=== PATIENT | female | born 1935 | race Caucasian/White ===

== ENCOUNTER → 2016-08-06 | Outpatient (CLI) | payer OTHER ==
[~2016-08-06] MED LIST: ACETAMINOPHEN325 M1 PO; AMBIEN CR 6.26.25 MG PO; AUGMENTIN 875875 M1 PO; BYSTOLIC 5 MG5 M1 PO; CARDIZEM CD240 MG PO; COLACE 100 MG100 MG PO; COZAAR100 MG PO; CYMBALTA60 MG PO; DILT-CD240 MG PO; DITROPAN XL10 M1 PO; DIVIGEL0.25 MG TD; DULCOLAX5 MG PO; DUONEB 2.5-0.5 M3 ML INH; ENOXAPARIN30 MG/0.1 SUBQ; FUROSEMIDE 20 M20 M1 PO; FUROSEMIDE 20 M20 MG PO; KEFLEX500 MG PO; KLOR-CON 1010 MEQ PO; LASIX 40 MG TAB40 M2 PO; LEVAQUIN 500 M500 M2 PO; LIORESAL 10 MG10 MG PO; LUNESTA3 MG PO; LYRICA 50 MG50 MG PO; LYRICA 75 MG CA75 MG PO; MUCINEX TA600 MG/TA1 PO; NORCO 5-325 TA1 EACH PO; NORCO 7.5-3251 EACH PO; OXYCODONE HCL20 M1 PO; OXYCONTIN10 M1 PO; OXYCONTIN20 M1 PO; PACERONE 200 M200 M1 PO; PEPCID20 MG PO; PREDNISONE 10 M10 MG PO; RESTORIL30 MG PO; RISPERDAL0.5 MG PO; TRAMADOL 50 MG50 MG PO; ULTRAM ER200 MG PO; VANCOCIN 125 M125 M1 PO; [UNRECOGNIZED DRUG - OTHER] PO
== END ==
LOC: HYPER 07:49
DX: L03.116 Cellulitis of left lower limb (principal); L03.115 Cellulitis of right lower limb; I10 Essential (primary) hypertension; J45.909 Unspecified asthma, uncomplicated; F41.9 Anxiety disorder, unspecified; F32.9 Major depressive disorder, single episode, unspecified; Z87.01 Personal history of pneumonia (recurrent); Z85.828 Personal history of other malignant neoplasm of skin; Z85.038 Personal history of other malignant neoplasm of large intestine; Z90.710 Acquired absence of both cervix and uterus; Z72.89 Other problems related to lifestyle

== ENCOUNTER → 2016-12-22 | Outpatient (CLI) | payer OTHER | LOC: HYPER | DX: L89.613 Pressure ulcer of right heel, stage 3 (principal); I10 Essential (primary) hypertension; J45.909 Unspecified asthma, uncomplicated; F32.9 Major depressive disorder, single episode, unspecified; F41.9 Anxiety disorder, unspecified; Z85.038 Personal history of other malignant neoplasm of large intestine; Z85.828 Personal history of other malignant neoplasm of skin; Z90.710 Acquired absence of both cervix and uterus; Z87.891 Personal history of nicotine dependence; Z87.01 Personal history of pneumonia (recurrent) ==

== ENCOUNTER → 2017-01-12 | Outpatient (CLI) | payer OTHER | LOC: HYPER 07:01 | DX: L89.613 Pressure ulcer of right heel, stage 3 (principal); I10 Essential (primary) hypertension; J45.909 Unspecified asthma, uncomplicated; F41.9 Anxiety disorder, unspecified; F32.9 Major depressive disorder, single episode, unspecified; Z85.038 Personal history of other malignant neoplasm of large intestine; Z87.01 Personal history of pneumonia (recurrent); Z85.828 Personal history of other malignant neoplasm of skin; Z87.891 Personal history of nicotine dependence; Z72.89 Other problems related to lifestyle; Z90.710 Acquired absence of both cervix and uterus ==

== ENCOUNTER → 2017-02-09 | Outpatient (CLI) | payer OTHER | LOC: HYPER 07:12 | DX: L89.613 Pressure ulcer of right heel, stage 3 (principal); R60.0 Localized edema; L03.115 Cellulitis of right lower limb; I10 Essential (primary) hypertension; J45.909 Unspecified asthma, uncomplicated; F41.9 Anxiety disorder, unspecified; R60.9 Edema, unspecified; F32.9 Major depressive disorder, single episode, unspecified; Z85.828 Personal history of other malignant neoplasm of skin; Z90.710 Acquired absence of both cervix and uterus; Z87.891 Personal history of nicotine dependence; Z72.89 Other problems related to lifestyle ==

== ENCOUNTER → 2017-03-09 | Outpatient (CLI) | payer OTHER | LOC: HYPER 07:02 | DX: L89.613 Pressure ulcer of right heel, stage 3 (principal); I10 Essential (primary) hypertension; Z87.01 Personal history of pneumonia (recurrent); J45.909 Unspecified asthma, uncomplicated; F41.9 Anxiety disorder, unspecified; Z85.038 Personal history of other malignant neoplasm of large intestine; Z85.828 Personal history of other malignant neoplasm of skin; F32.9 Major depressive disorder, single episode, unspecified; Z87.891 Personal history of nicotine dependence; Z72.89 Other problems related to lifestyle; Z90.710 Acquired absence of both cervix and uterus ==

== ENCOUNTER → 2017-04-06 | Outpatient (CLI) | payer OTHER | LOC: HYPER 07:09 | DX: L89.613 Pressure ulcer of right heel, stage 3 (principal); L03.115 Cellulitis of right lower limb; I10 Essential (primary) hypertension; J45.909 Unspecified asthma, uncomplicated; F41.9 Anxiety disorder, unspecified; F32.9 Major depressive disorder, single episode, unspecified; Z85.038 Personal history of other malignant neoplasm of large intestine; Z85.828 Personal history of other malignant neoplasm of skin; Z87.01 Personal history of pneumonia (recurrent); Z90.710 Acquired absence of both cervix and uterus; Z87.891 Personal history of nicotine dependence; Z72.89 Other problems related to lifestyle ==

== ENCOUNTER → 2017-07-19 | Outpatient (CLI) | payer OTHER | LOC: HYPER 06-14 14:55 | DX: L89.612 Pressure ulcer of right heel, stage 2 (principal); J45.909 Unspecified asthma, uncomplicated; I10 Essential (primary) hypertension; F32.9 Major depressive disorder, single episode, unspecified; F41.9 Anxiety disorder, unspecified; Z85.038 Personal history of other malignant neoplasm of large intestine; Z90.710 Acquired absence of both cervix and uterus; Z87.891 Personal history of nicotine dependence; Z72.89 Other problems related to lifestyle ==

== ENCOUNTER → 2017-08-10 | Outpatient (CLI) | payer OTHER | LOC: HYPER 06:49 | DX: L89.612 Pressure ulcer of right heel, stage 2 (principal); L89.629 Pressure ulcer of left heel, unspecified stage; I10 Essential (primary) hypertension; L84 Corns and callosities; J45.909 Unspecified asthma, uncomplicated; F41.9 Anxiety disorder, unspecified; F32.9 Major depressive disorder, single episode, unspecified; Z85.038 Personal history of other malignant neoplasm of large intestine; Z87.891 Personal history of nicotine dependence; Z72.89 Other problems related to lifestyle; Z90.710 Acquired absence of both cervix and uterus ==

== ENCOUNTER → 2017-12-08 | Outpatient (CLI) | payer OTHER | LOC: HYPER 06:44 | DX: L89.612 Pressure ulcer of right heel, stage 2 (principal); L89.622 Pressure ulcer of left heel, stage 2; L03.115 Cellulitis of right lower limb; L84 Corns and callosities; Z87.01 Personal history of pneumonia (recurrent); J45.909 Unspecified asthma, uncomplicated; I10 Essential (primary) hypertension; F32.9 Major depressive disorder, single episode, unspecified; Z90.710 Acquired absence of both cervix and uterus; Z87.891 Personal history of nicotine dependence ==

== ENCOUNTER → 2017-12-21 | Outpatient (CLI) | payer OTHER | LOC: HYPER 07:03 | DX: L89.612 Pressure ulcer of right heel, stage 2 (principal); I10 Essential (primary) hypertension; L84 Corns and callosities; J44.9 Chronic obstructive pulmonary disease, unspecified; F41.9 Anxiety disorder, unspecified; F32.9 Major depressive disorder, single episode, unspecified; Z85.038 Personal history of other malignant neoplasm of large intestine; Z87.01 Personal history of pneumonia (recurrent); Z90.710 Acquired absence of both cervix and uterus; Z87.891 Personal history of nicotine dependence ==

== ENCOUNTER → 2018-01-12 | Outpatient (CLI) | payer OTHER | LOC: HYPER 07:05 | DX: L89.612 Pressure ulcer of right heel, stage 2 (principal); L84 Corns and callosities; J45.909 Unspecified asthma, uncomplicated; F41.9 Anxiety disorder, unspecified; I10 Essential (primary) hypertension; F32.9 Major depressive disorder, single episode, unspecified; Z85.038 Personal history of other malignant neoplasm of large intestine; Z87.891 Personal history of nicotine dependence; Z90.710 Acquired absence of both cervix and uterus ==

== ENCOUNTER → 2018-03-01 | Outpatient (CLI) | payer OTHER | LOC: HYPER 06:56 | DX: L89.612 Pressure ulcer of right heel, stage 2 (principal); L84 Corns and callosities; J45.909 Unspecified asthma, uncomplicated; F41.9 Anxiety disorder, unspecified; F32.9 Major depressive disorder, single episode, unspecified; I10 Essential (primary) hypertension; C44.722 Squamous cell carcinoma of skin of right lower limb, including hip; Z85.038 Personal history of other malignant neoplasm of large intestine; Z90.710 Acquired absence of both cervix and uterus; Z87.891 Personal history of nicotine dependence ==

== ENCOUNTER → 2018-04-13 | Outpatient (CLI) | payer OTHER | LOC: HYPER 06:57 | DX: L89.612 Pressure ulcer of right heel, stage 2 (principal); C44.722 Squamous cell carcinoma of skin of right lower limb, including hip; I10 Essential (primary) hypertension; J45.909 Unspecified asthma, uncomplicated; L84 Corns and callosities; F32.9 Major depressive disorder, single episode, unspecified; F41.9 Anxiety disorder, unspecified; Z87.891 Personal history of nicotine dependence; Z87.01 Personal history of pneumonia (recurrent) ==

== ENCOUNTER → 2018-04-26 | Outpatient (CLI) | payer OTHER | LOC: HYPER 07:05 | DX: L89.613 Pressure ulcer of right heel, stage 3 (principal); L84 Corns and callosities; C44.722 Squamous cell carcinoma of skin of right lower limb, including hip; G90.09 Other idiopathic peripheral autonomic neuropathy; I10 Essential (primary) hypertension; J45.909 Unspecified asthma, uncomplicated; K21.9 Gastro-esophageal reflux disease without esophagitis; F32.9 Major depressive disorder, single episode, unspecified; F41.9 Anxiety disorder, unspecified; Z85.038 Personal history of other malignant neoplasm of large intestine; Z85.828 Personal history of other malignant neoplasm of skin; Z87.891 Personal history of nicotine dependence ==

== ENCOUNTER → 2018-05-18 | Outpatient (CLI) | payer OTHER | LOC: HYPER 07:03 | DX: L89.613 Pressure ulcer of right heel, stage 3 (principal); L84 Corns and callosities; C44.722 Squamous cell carcinoma of skin of right lower limb, including hip; G90.09 Other idiopathic peripheral autonomic neuropathy; I10 Essential (primary) hypertension; J45.909 Unspecified asthma, uncomplicated; K21.9 Gastro-esophageal reflux disease without esophagitis; F32.9 Major depressive disorder, single episode, unspecified; F41.9 Anxiety disorder, unspecified; Z85.828 Personal history of other malignant neoplasm of skin; Z85.030 Personal history of malignant carcinoid tumor of large intestine; Z87.891 Personal history of nicotine dependence ==

== ENCOUNTER → 2018-06-07 | Outpatient (CLI) | payer OTHER | LOC: HYPER 06:53 | DX: L89.613 Pressure ulcer of right heel, stage 3 (principal); L84 Corns and callosities; I10 Essential (primary) hypertension; C44.722 Squamous cell carcinoma of skin of right lower limb, including hip; J45.909 Unspecified asthma, uncomplicated; G90.09 Other idiopathic peripheral autonomic neuropathy; F41.9 Anxiety disorder, unspecified; F32.9 Major depressive disorder, single episode, unspecified; Z87.891 Personal history of nicotine dependence ==

== ENCOUNTER → 2018-07-05 | Outpatient (CLI) | payer OTHER | LOC: HYPER 07:02 | DX: L89.613 Pressure ulcer of right heel, stage 3 (principal); L84 Corns and callosities; C44.722 Squamous cell carcinoma of skin of right lower limb, including hip; G90.09 Other idiopathic peripheral autonomic neuropathy; I10 Essential (primary) hypertension; J45.909 Unspecified asthma, uncomplicated; K21.9 Gastro-esophageal reflux disease without esophagitis; F41.9 Anxiety disorder, unspecified; F32.9 Major depressive disorder, single episode, unspecified; Z85.038 Personal history of other malignant neoplasm of large intestine; Z87.891 Personal history of nicotine dependence ==

== ENCOUNTER → 2018-08-10 | Outpatient (CLI) | payer OTHER | LOC: HYPER 07:22 | DX: L89.613 Pressure ulcer of right heel, stage 3 (principal); L84 Corns and callosities; C44.722 Squamous cell carcinoma of skin of right lower limb, including hip; G90.09 Other idiopathic peripheral autonomic neuropathy; I10 Essential (primary) hypertension; J45.909 Unspecified asthma, uncomplicated; K21.9 Gastro-esophageal reflux disease without esophagitis; F32.9 Major depressive disorder, single episode, unspecified; F41.9 Anxiety disorder, unspecified; Z85.038 Personal history of other malignant neoplasm of large intestine; Z87.891 Personal history of nicotine dependence ==

== ENCOUNTER → 2018-08-31 | Outpatient (CLI) | payer OTHER | LOC: HYPER 07:01 | DX: L89.613 Pressure ulcer of right heel, stage 3 (principal); L84 Corns and callosities; C44.722 Squamous cell carcinoma of skin of right lower limb, including hip; G90.09 Other idiopathic peripheral autonomic neuropathy; I10 Essential (primary) hypertension; J45.909 Unspecified asthma, uncomplicated; K21.9 Gastro-esophageal reflux disease without esophagitis; F32.9 Major depressive disorder, single episode, unspecified; F41.9 Anxiety disorder, unspecified; Z85.038 Personal history of other malignant neoplasm of large intestine; Z87.891 Personal history of nicotine dependence ==

== ENCOUNTER → 2018-09-14 | Outpatient (CLI) | payer OTHER | LOC: HYPER 07:05 | DX: L89.613 Pressure ulcer of right heel, stage 3 (principal); L84 Corns and callosities; C44.722 Squamous cell carcinoma of skin of right lower limb, including hip; G90.09 Other idiopathic peripheral autonomic neuropathy; I10 Essential (primary) hypertension; J45.909 Unspecified asthma, uncomplicated; R60.0 Localized edema; F32.9 Major depressive disorder, single episode, unspecified; F41.9 Anxiety disorder, unspecified; Z85.038 Personal history of other malignant neoplasm of large intestine; Z85.828 Personal history of other malignant neoplasm of skin; Z87.891 Personal history of nicotine dependence ==

== ENCOUNTER → 2018-09-27 | Outpatient (CLI) | payer OTHER | LOC: HYPER 06:41 | DX: L89.613 Pressure ulcer of right heel, stage 3 (principal); L84 Corns and callosities; C44.722 Squamous cell carcinoma of skin of right lower limb, including hip; G90.09 Other idiopathic peripheral autonomic neuropathy; I10 Essential (primary) hypertension; J45.909 Unspecified asthma, uncomplicated; K21.9 Gastro-esophageal reflux disease without esophagitis; F32.9 Major depressive disorder, single episode, unspecified; F41.9 Anxiety disorder, unspecified; Z85.038 Personal history of other malignant neoplasm of large intestine; Z87.891 Personal history of nicotine dependence ==

== ENCOUNTER → 2018-10-11 | Outpatient (CLI) | payer OTHER | LOC: HYPER 06:51 | DX: L89.613 Pressure ulcer of right heel, stage 3 (principal); L84 Corns and callosities; C44.722 Squamous cell carcinoma of skin of right lower limb, including hip; G90.09 Other idiopathic peripheral autonomic neuropathy; I10 Essential (primary) hypertension; J45.909 Unspecified asthma, uncomplicated; K21.9 Gastro-esophageal reflux disease without esophagitis; R60.0 Localized edema; F32.9 Major depressive disorder, single episode, unspecified; F41.9 Anxiety disorder, unspecified; Z85.038 Personal history of other malignant neoplasm of large intestine; Z85.828 Personal history of other malignant neoplasm of skin; Z87.891 Personal history of nicotine dependence ==

== ENCOUNTER → 2018-10-25 | Outpatient (CLI) | payer OTHER | LOC: HYPER 07:03 | DX: L89.613 Pressure ulcer of right heel, stage 3 (principal); L84 Corns and callosities; G90.09 Other idiopathic peripheral autonomic neuropathy; R60.0 Localized edema; C44.722 Squamous cell carcinoma of skin of right lower limb, including hip; I10 Essential (primary) hypertension; J45.909 Unspecified asthma, uncomplicated; K21.9 Gastro-esophageal reflux disease without esophagitis; F41.9 Anxiety disorder, unspecified; F32.9 Major depressive disorder, single episode, unspecified; Z85.038 Personal history of other malignant neoplasm of large intestine; Z87.891 Personal history of nicotine dependence ==

== ENCOUNTER → 2018-11-23 | Outpatient (CLI) | payer OTHER | LOC: HYPER 06:46 | DX: L89.613 Pressure ulcer of right heel, stage 3 (principal); L89.151 Pressure ulcer of sacral region, stage 1; I10 Essential (primary) hypertension; C44.722 Squamous cell carcinoma of skin of right lower limb, including hip; L84 Corns and callosities; G90.09 Other idiopathic peripheral autonomic neuropathy; R60.0 Localized edema; J45.909 Unspecified asthma, uncomplicated; F32.9 Major depressive disorder, single episode, unspecified; F41.9 Anxiety disorder, unspecified; Z87.891 Personal history of nicotine dependence; Z85.038 Personal history of other malignant neoplasm of large intestine ==

== ENCOUNTER 2018-12-02 12:15 | Inpatient (IN) | payer OTHER ==
[~2018-12-02] VITALS: Ht 162.6 cm; Wt 55.8 kg
--- NOTE | ~2018-12-02 | HC ---
[facility] [place] [address] CONSULTATION Name: AARON ANGUIANO Room #: 212-P ADM IN M.R.#: [id number] Admission: 12/05/18 ������������������ Attend Phys: Brittney Beard MD Discharge: ������������������ Date of : 34 Report #: [id number] THIS REPORT FOR: //name// CC: Brittney Beard DATE OF SERVICE: 12/05/2018 HISTORY OF PRESENT ILLNESS: The patient is an 82-year-old white female admitted with increased cough, shortness of breath, and was noted to have left lower lobe pneumonia, non-ST elevation [place], intermittent atrial fibrillation. She has chronic pain. She was noted to have paroxysmal atrial fibrillation, superimposed on supraventricular tachycardia. She also has acute renal insufficiency with hyponatremia. We are seeing her in rehabilitation medicine consultation. PAST MEDICAL HISTORY: Asthma, hypertension, bipolar disorder, chronic edema of the lower extremities, multilobar pneumonia with respiratory failure, intermittent atrial fibrillation, Clostridium difficile colitis, chronic pain ____ with laminectomy x 3, prior history of rotator cuff surgery, knee surgery, and multiple abdominal surgeries. MEDICATIONS: Please see the full medication listing. This includes vitamins, herbals, and supplements. ALLERGIES: ASPIRIN, CODEINE AND DULOXETINE. SOCIAL HISTORY: Lives in a house with significant other of 40 years, 12 steps in. Used a cane just when out in the community. Otherwise, did not use gait aids. REVIEW OF SYSTEMS: No complaints of chest pain, shortness of breath or abdominal discomfort. PHYSICAL EXAMINATION: GENERAL: An 82-year-old thin white female in no obvious distress. VITAL SIGNS: Last recorded temperature 98.4, pulse 87, respirations 18, and blood pressure 114/60. She is alert. HEENT: Appeared to be benign. NEUROLOGIC: Cranial nerves are grossly intact. Facies are symmetric. Answers questions appropriately. Functional range of motion of both upper extremities with strength grade 4-/5. DTRs trace to 1. Lower extremities, no focal calf swelling, functional range of motion with strength grade 4-/5. DTRs are trace to 1. She is mod assist, sit to stand. Gait 100 feet min assist with a front-wheeled walker. ASSESSMENT: An 82-year-old white female with the following problems: [address] [address] CONSULTATION Name: AARON ANGUIANO Room #: [facility] IN ..#: [id number] Admission: 12/05/18 ������������������ Attend Phys: Brittney Beard MD Discharge: ������������������ Date of : 34 Report #: [id number] 1. Medical complex with generalized debilitation. 2. Left lower lobe pneumonia. 3. Non-ST elevation myocardial infarction. 4. Intermittent atrial fibrillation. 5. Chronic pain syndrome. 6. Diastolic congestive heart failure. PLAN: The patient is being considered regarding an acute [facility] inpatient rehabilitation stay. We will be glad to follow along with you regarding her rehab therapy needs. ��������������������������������������������� ���������������������������������������� By: ��������������������������������������������� [id number] Ney Dboson MD /axel
[2018-12-02 12:17] VITALS: BP 121/53
[2018-12-02 12:54] LABS: ABSOLUTE NEUTROPHILS 9.4 thou/uL (1.4-8.2); BASOPHILS 0.2 % (0.0-2.0); EOSINOPHILS 0.7 % (0.0-3.0); HEMATOCRIT 36.4 % (37.0-47.0); HEMOGLOBIN 12.3 gm/dL (12.0-15.0); LYMPHOCYTES 7.8 % (24.0-44.0); MCH 29.8 pg (26.0-34.0); MCHC 33.7 g/dL (28.0-37.0); MCV 88.4 fL (80.0-100.0); POLYS 85.3 % (36.0-66.0); RBC 4.12 mil/uL (4.20-5.00); RDW 14.9 % (10.5-14.5); WBC 11.1 thou/uL (4.0-11.0)
[2018-12-02 13:03] LABS: CALCIUM 9.6 mg/dL (8.5-10.1); CREATININE 1.5 mg/dL (0.6-1.0); POTASSIUM 3.5 mmol/L (3.5-5.1)
[2018-12-02 13:13] LABS: ALBUMIN 3.1 g/dL (3.4-5.0); MAGNESIUM 2.3 mg/dL (1.8-2.4); TOTAL BILIRUBIN 0.6 mg/dL (<0.1-1.0); TOTAL PROTEIN 7.7 g/dL (6.4-8.2); TROPONIN-I 0.42 ng/mL (<0.06)
[2018-12-02 13:14] LABS: APTT 27.5 Seconds (24.5-32.8); PROTIME 9.8 Seconds (9.3-11.4)
[2018-12-02 13:24] LABS: URINE BILIRUBIN NEGATIVE (Negative); URINE BLOOD NEGATIVE (Negative); URINE CLARITY CLEAR; URINE COLOR YELLOW; URINE GLUCOSE-RANDOM* NEGATIVE (Negative); URINE KETONES NEGATIVE (Negative); URINE LEUKOCYTES-REFLEX NEGATIVE (Negative); URINE NITRITE-REFLEX NEGATIVE (Negative); URINE PROTEIN (DIPSTICK) NEGATIVE (Negative); URINE SPECIFIC GRAVITY <= 1.005 (1.005-1.035); URINE UROBILINOGEN 0.2 E.U./dl (0.2-1.0)
[2018-12-02 13:28] LABS: LARGE PLATELETS MANY; PLATELET COUNT 99 thou/uL (150-400)
[2018-12-02] MEDS ORDERED: KEFLEX250 MG PO (13:52)
[2018-12-02] MEDS ORDERED: OXYCONTIN20 M1 PO (13:54)
[2018-12-02 14:19] VITALS: BP 101/43
[2018-12-02 14:47] VITALS: BP 93/43
[2018-12-02 15:15] VITALS: BP 101/44
--- NOTE | 2018-12-02 19:45 | NUR ---
PT ARRIVED TO 212 FROM ED IN STABLE CONDITION AT APPROX 15:15. S.O. DARIN AT BEDSIDE. ADMISSION ASSESSMENT COMPLETED. A&O TO PERSON, PLACE, SITUATION - NOT TIME. 1.[address], NO OXYGEN USE AT HOME. LOW BP NOTED IN ED, IMPROVING. DENIES SOA OR CHEST PAIN. LUNG SOUNDS DIM/COARSE THROUGHOUT. SKIN HX COCCYX WOUND REDNESS, BILATERAL HEEL WOUNDS, BILATERAL ARMS/LEGS SCARS AND BRUISING. HX SQUAMOUS GRAFTS. INTACT, NO OPEN AREAS NOTED. FALL RISK NOTED, YELLOW SOCKS IN PLACE. X1 ASSIST. PT IN STABLE CONDITION. END OF SHIFT.
[2018-12-02 20:35] VITALS: BP 119/56
[2018-12-03 02:19] VITALS: BP 113/55
[2018-12-03 04:48] VITALS: BP 136/68
[2018-12-03 05:04] LABS: HEMATOCRIT 34.3 % (37.0-47.0); HEMOGLOBIN 11.5 gm/dL (12.0-15.0); MCH 30.3 pg (26.0-34.0); MCHC 33.5 g/dL (28.0-37.0); MCV 90.3 fL (80.0-100.0); RBC 3.79 mil/uL (4.20-5.00); RDW 15.1 % (10.5-14.5); WBC 7.2 thou/uL (4.0-11.0)
[2018-12-03 05:13] LABS: CALCIUM 8.6 mg/dL (8.5-10.1); CREATININE 0.8 mg/dL (0.6-1.0)
[2018-12-03 05:21] LABS: POTASSIUM 2.6 mmol/L (3.5-5.1)
--- NOTE | 2018-12-03 05:21 | NUR ---
ASSESSMENT DOCUMENTED.PT RESTING IN NO ACUTE DISTRESS.VSS.FREQUENT URINATION.UP TO BSC WITH ONE PERSON ASSIST.A/OX4.USES CALL LIGHT APPROPRIATELLY.MEDS RESUMED PER DR MORENO ORDERS.PT DENIES PAIN.IVF INFUSING.O2 AT 2LITERS PER NC.DR MORENO TO SEE PT FOR MORE ORDERS THIS AM.
[2018-12-03 07:30] VITALS: BP 140/53
--- NOTE | 2018-12-03 08:22 | EKG ---
[address] [place] [address] ELECTROCARDIOGRAM REPORT Name: AARON ANGUIANO Room #: 212-[facility]#: [id number] ������������������ Admission: 12/02/18 ������������������ Attend Phys: Brittney Beard MD Discharge: ������������������ Date of : 34 Report #: [id number] ����������������������������������������������������������������� [id number] THIS REPORT FOR: //name// [facility] ED Test Date: 2018-12-02 Test Time: 13:08:25 Pat Name: AARON ANGUIANO Department: Room: [facility] Gender: F Weight Trainer: : 1935 Requested By: Blaine Garrison Order Number: [id number] MD: Karlo Estrada Measurements Intervals [place] Rate: 94 P: 73 IA: 126 QRS: 59 QRSD: 124 T: 26 QT: 353 QTc: 442 Interpretive Statements Sinus rhythm Right bundle branch block Compared to ECG 09/16/2016 13:58:02 No significant changes Electronically Signed On 12-03-2018 8:21:59 CDT by Karlo Estrada [email or web address] ��������������������������������������������� <ELECTRONICALLY SIGNED> ���������������������������������������� By: Karlo Estrada MD ��������������������������������������������� 12/03/18 0821 1308 1308 Karlo Estrada MD /BELGICA
--- NOTE | 2018-12-03 09:26 | 2DMMODE ---
[facility] [place] [address] 2 D/M-MODE ECHOCARDIOGRAM Name: AARON ANGUIANO Room #: 212-P ADM IN M.R.#: [id number] ������������� Admission: 12/02/18 ������������� Attend Phys: Brittney Beard MD Discharge: ��� ������������� ��� Date of : 34 Date of Service: 12/03/18 0926 �� Report #: [id number] �������� ��������������������������������������������[id number] THIS REPORT FOR: //name// APPROVED REPORT Study performed: 12/03/2018 07:59:06 EXAM: Comprehensive 2D, Doppler, and color-flow Echocardiogram Patient Location: Bedside Room #: 212 Status: on-call BSA: 1.54 HR: 89 bpm BP: 136/68 mmHg Rhythm: NSR Other Information Study Quality: Adequate Indications Short of breath. Hx: HTN, Afib. 2D Dimensions RVDd: 37.00 mm IVSd: 8.55 (7-11mm) LVOT Diam: 20.06 (18-24mm) LVDd: 38.98 mm PWd: 9.19 (7-11mm) Ascending Ao: 24.84 (22-36mm) LVDs: 25.59 (25-40mm) Aortic Root: 27.25 mm Volumes Left Atrial Volume (Systole) Single Plane 4CH: 37.12 mL Single Plane 2CH: 29.20 mL LA ESV Index: 24.00 mL/m2 Aortic Valve AoV Peak Abdon.: 1.43 m/s AO Peak Gr.: 8.22 mmHg LVOT Max P.87 mmHg LVOT Max V: 1.21 m/s AMAURI Vmax: 2.67 cm2 Mitral Valve E/A Ratio: 1.2 MV Decel. Time: 120.61 ms MV E Max Abdon.: 1.18 m/s [facility] [address] [place] [address] 2 D/M-MODE ECHOCARDIOGRAM Name: AARON ANGUIANO BERNAL Room #: [address] [place] [address] IN ..#: [id number] ������������� Admission: 12/02/18 ������������� Attend Phys: Brittney Beard MD Discharge: ��� ������������� ��� Date of : 34 Date of Service: 12/03/18 0926 �� Report #: [id number] �������� ��������������������������������������������[id number] MV A Abdon.: 1.00 m/s MV PHT: 34.98 ms IVRT: 48.44 ms Pulmonary Valve PV Peak Abdon.: 0.92 m/s PV Peak Gr.: 3.40 mmHg Pulmonary Vein P Vein S: 0.65 m/s P Vein D: 0.43 m/s P Vein S/D Ratio: 1.51 Tricuspid Valve TR Peak Abdon.: 2.92 m/s RAP Estimate: 10.00 mmHg TR Peak Gr.: 34.03 mmHg PA Pressure: 44.00 mmHg Left Ventricle The left ventricle is normal size. There is normal LV segmental wall motion. There is normal left ventricular wall thickness. Left ventricular systolic function is normal. LVEF is 55-60%. Moderate diastolic dysfunction is present (pseudonormal filling). Right Ventricle The right ventricle is normal size. The right ventricular systolic function is normal. Atria The left atrium size is normal. The right atrium size is normal. Aortic Valve Aortic valve is trileaflet, mildly thickened. No aortic regurgitation is present. There is no aortic valvular stenosis. Mitral Valve Mitral valve leaflets are mildly thickened. Mild mitral regurgitation. Tricuspid Valve The tricuspid valve is normal in structure. Mild tricuspid regurgitation. Estimated PAP is 40-45mmHg. Pulmonic Valve The pulmonary valve is normal in structure. Trace pulmonic regurgitation. [facility] [address] [place] [address] 2 D/M-MODE ECHOCARDIOGRAM Name: AARON ANGUIANO Room #: [facility] IN ..#: [id number] ������������� Admission: 12/02/18 ������������� Attend Phys: Brittney Beard MD Discharge: ��� ������������� ��� Date of : 34 Date of Service: 12/03/18 0926 �� Report #: [id number] �������� ��������������������������������������������[id number] Great Vessels The aortic root is normal in size. The ascending aorta is normal in size. IVC is dilated and collapses >50% with inspiration. Pericardium There is no pericardial effusion. <Conclusion> The left ventricle is normal size. There is normal left ventricular wall thickness. Left ventricular systolic function is normal. Moderate diastolic dysfunction is present (pseudonormal filling). The right ventricle is normal size. The left atrium size is normal. Aortic valve is trileaflet, mildly thickened. Mitral valve leaflets are mildly thickened. Mild mitral regurgitation. Mild tricuspid regurgitation. Estimated PAP is 40-45mmHg. ��������������������������������������������� <ELECTRONICALLY SIGNED> ���������������������������������������� By: Karlo Estrada MD ��������������������������������������������� 12/03/18925 5 5 Karlo Estrada MD /INF
[2018-12-03 11:30] VITALS: BP 125/49
[2018-12-03 15:55] VITALS: BP 126/53
--- NOTE | 2018-12-03 16:41 | NUR ---
PT A&OX4. TRANSFERS WITH ASSIST X1 TO BSC. IV INTACT IN L FA INFUSING NS @ 125/HR. O2 @1.5L PER NC. S/O AT THE BEDSIDE. WILL CONT POC.
[2018-12-04] VITALS (7 sets, daily range): BP systolic 103–153; BP diastolic 4–73
--- NOTE | 2018-12-04 01:11 | NUR ---
ASSUMED PT CARE FROM 0 TO MIDNOC.PT WAS RESTING IN NO ACUTE DISTRESS.A/OX4.VSS.C/O BLADDER SPASMS,HOME MED RESUMED PER ORDERS.C/O CHRONIC PAIN TO BACK AND SOFIA LES,PAIN MEDS GIVEN PER SEP,PT VOICED SOME RELIEF.UP WITH ASSIST OF 1 TO BSC,TOLERATED.PT/OT ON BOARD PER PT/FAMILY REQUEST.REPORT GIVEN TO RN TO CONTINUE WITH CARE.
[2018-12-04 03:21] LABS: HEMATOCRIT 29.8 % (37.0-47.0); MCH 30.6 pg (26.0-34.0); MCHC 33.4 g/dL (28.0-37.0); MCV 91.5 fL (80.0-100.0); PLATELET COUNT 85 thou/uL (150-400); RBC 3.25 mil/uL (4.20-5.00); RDW 15.1 % (10.5-14.5); WBC 7.5 thou/uL (4.0-11.0)
[2018-12-04 03:29] LABS: CALCIUM 8.4 mg/dL (8.5-10.1); CREATININE 0.7 mg/dL (0.6-1.0); MAGNESIUM 1.5 mg/dL (1.8-2.4); POTASSIUM 3.8 mmol/L (3.5-5.1)
--- NOTE | 2018-12-04 04:27 | NUR ---
CLIENT REMAINS IN THE [address] [place] [address] IN PATIENT NURSING UNIT FOR WEAKNESS, FEVER AND FATIGUE. CARE ASSUMED 12/03/18 @ 2300. CLIENT IS A/O X3 ABLE TO HOLD CONVERSATION AND RESPOND TO QUESTIONS BEING ASKED. UP WITH ASSIST X1, CURRENTLY ON CCT. HAS EDEMA TO BLE 1-2+. RECEIVING 1.5L/NC OF 02. HEART HEALTHY DIET, LAST BM 12/01/18. CLIENT HAS BRUISING THROUGOUT HER SKIN AND SLIGHT REDDEND HEELS TO BILATERAL FEET. LEFT FA PIV WITH NS @ 50ML. CLIENT HAS BEEN AFIBRILE DURING THE NIGHT AND HAD A PREVIOUS TROPONIN LEVEL OF 0.42. PLEASE SEE Mechanology FOR ADDITIONAL QUESTIONS OR CONCERNS.
[2018-12-04 04:48] LABS: ABSOLUTE NEUTROPHILS 5.3 thou/uL (1.4-8.2); LARGE PLATELETS OCCASIONAL; PLATELET ESTIMATE DECREASED
--- NOTE | 2018-12-04 08:37 | HC ---
[facility] [place] [address] CONSULTATION Name: AARON ANGUIANO Room #: 212-P [facility].[place]orraine#: [id number] Admission: 12/02/18 ������������������ Attend Phys: Brittney Beard MD Discharge: ������������������ Date of : 34 Report #: [id number] THIS REPORT FOR: //name// CC: Brittney Beard DATE OF SERVICE: 12/02/2018 INDICATION: Troponin elevation. HISTORY OF PRESENT ILLNESS: This is an 82-year-old female with a history of hypertension, bipolar disorder, asthma, paroxysmal atrial fibrillation, edema, cellulitis, who presents with weakness and fever. According to the , she has been feeling lethargic and weak for the past week or so. This morning, she was found to have a temperature of 101, did not feel well. She denies any chest pains or shortness of breath. There is no history of nausea, vomiting or diarrhea. She does report cough with minimal phlegm production. She is admitted for possible pneumonia and the troponin is elevated at 0.42. PAST MEDICAL HISTORY: Paroxysmal atrial fibrillation, although not recently documented. Followed by Dr. Johns. History of asthma, hypertension, bipolar disorder, history of edema with C. diff in the past and cellulitis. MEDICATIONS AT HOME: Include Risperdal, Dulcolax, OxyContin, Lasix 40 mg twice a day, Cardizem-CD 180 mg daily, potassium. ALLERGIES: INCLUDE ASPIRIN, NEOSPORIN, CODEINE, LATEX. Please see the MAR for full details. SOCIAL HISTORY: Negative for tobacco use. FAMILY HISTORY: Negative for premature CAD. REVIEW OF SYSTEMS: A full 10-point review of systems is performed. Only the pertinent positives and negatives are described in the HPI. PHYSICAL EXAMINATION: VITAL SIGNS: Blood pressure is 100/60, heart rate is 87 beats per minute. GENERAL APPEARANCE: An elderly appearing female in no acute distress. HEENT: Normocephalic, atraumatic. Oral mucosa moist. NECK: Supple. LUNGS: Diminished breath sounds at the right base. CARDIAC: Regular rate and rhythm, S1, S2 positive. ABDOMEN: Soft, nontender. EXTREMITIES: Trace edema, no cyanosis. ECG reveals sinus rhythm, right bundle-branch block. [facility] [address] [place] [address] CONSULTATION Name: AARON ANGIUANO Room #: [address] [place] [address] M.R.#: [id number] Admission: 12/02/18 ������������������ Attend Phys: Brittney Beard MD Discharge: ������������������ Date of : 34 Report #: [id number] LABORATORY VALUES: Troponin peak is 0.42, White count is 11.1, hemoglobin is 12.3, platelet count is 99,000. Creatinine is 1.5, BUN is 72. Sodium is 142. ASSESSMENT AND PLAN: 1. Weakness/lethargy, rule out pneumonia. Continue with antibiotics at this time. Would also recommend gentle hydration, the BUN and creatinine ratio is high. 2. Minimal troponin elevation, the significance is unclear as she has no complaints of angina and ECG does not show any acute ST segment changes. Could be related to oxygen mismatch. We will need an echocardiogram and an ischemic evaluation once her clinical course stabilizes. 3. Hypertension, low blood pressure at this time. Would hold on diuretic therapy. 4. History of paroxysmal atrial fibrillation, remains in sinus rhythm. 5. Edema, resolved. Hold Lasix as above. ��������������������������������������������� <ELECTRONICALLY SIGNED> ���������������������������������������� By: Karlo Estrada MD ��������������������������������������������� 12/04/18 0837 [id number] Karlo Estrada MD /nt
--- NOTE | 2018-12-04 08:45 | H ---
[facility] [place] [address] HISTORY AND PHYSICAL Name: AARON ANGUIANO Room #: 212-P [facility].Lorraine#: [id number] Admission: 12/02/18 ������������������ Attend Phys: Brittney Beard MD Discharge: ������������������ Date of : 34 Report #: [id number] THIS REPORT FOR: //name// CC: Brittney Beard DATE OF SERVICE: 12/02/2018 HISTORY OF PRESENT ILLNESS: The patient is an 82-year-old female who was brought to the Emergency Room with increasing coughing, shortness of breath and high grade fever. The patient indicated that she has started this about 1 day before. The patient does not have any runny nose or sore throat. The patient was not having any chest pain. The patient was not having any nausea or vomiting. The patient was found to have pneumonia and she was treated for that. PAST MEDICAL HISTORY: Significant for asthma, hypertension, bipolar disorder, interstitial cystitis, chronic edema of the lower extremities, multilobar pneumonia with respiratory failure, intermittent atrial fibrillation and C. difficile colitis. The patient had chronic pain syndrome with laminectomy x3, previous history of knee surgery, rotator cuff surgery and multiple abdominal surgeries. MEDICATIONS: Reviewed and reconciled. ALLERGIES: ASPIRIN, CODEINE AND DULOXETINE. SOCIAL HISTORY: The patient denies any recent smoking, alcohol use or drug use. FAMILY HISTORY: Noncontributory. REVIEW OF SYSTEMS: Negative besides what was mentioned above. PHYSICAL EXAMINATION: VITAL SIGNS: The patient is in bed. She is comfortable, eating her breakfast. When she arrived to the hospital, her temperature was 102.8, pulse 115, respiration 15, blood pressure 121/53. Last temperature was 97.5. The patient's oxygen saturation was 86% on arrival, and now it is 95%. HEAD AND NECK: Unremarkable. NECK: Supple. LUNGS: Clear to auscultation with decreased breath sounds. CARDIAC: S1, S2, without any murmur or gallop. ABDOMEN: Benign. Bowel sounds were positive. EXTREMITIES: +2 edema bilaterally. LABORATORY DATA: The patient's lab showed sodium of 142, potassium 3.5, chloride 99, bicarbonate 36, anion gap 7, BUN 72, creatinine 1.5, and glucose 106, AST 60, total bilirubin 0.6, magnesium 2.3, alkaline phosphatase 81, ALT [address] [address] HISTORY AND PHYSICAL Name: AARON ANGUIANO Room #: [address] [place] [address] M..#: [id number] Admission: 12/02/18 ������������������ Attend Phys: Brittney Beard MD Discharge: ������������������ Date of : 34 Report #: [id number] 32, and albumin 3.1. The patient's troponin was 0.42. Lactic acid was 1. BNP was 368. INR was 1 and PTT 27.5. Urinalysis was normal. CBC showed a white count of 11.1, hemoglobin 12.3, hematocrit 36.4, platelet count 99, neutrophils are 85%. The patient's chest x-ray showed left lower lobe atelectasis or infiltrate, chronic fibrosis. Influenza A and B was negative. Repeated troponin was 0.39. Repeated CBC showed a white count of 7.2, hemoglobin 11.5, hematocrit 34.3, and platelet count 81. The patient's basic metabolic panel showed sodium of 147, potassium 2.6, chloride 108, bicarbonate 34, BUN dropped to 30, and creatinine 0.8. Repeated troponin is 0.31. Blood culture are still pending. A 12-lead EKG showed sinus rhythm with right bundle branch block. Repeat chest x-ray showed pulmonary vascular congestion with interstitial and airspace opacities, suspicious for pulmonary edema, more focal bilateral lower lobe opacities, may represent pulmonary edema or atelectasis, superimposed pneumonia would be difficult to exclude. ASSESSMENT AND PLAN: 1. Left lower lobe pneumonia. 2. Non-ST elevation myocardial infarction. 3. Intermittent atrial fibrillation. 4. Chronic pain syndrome. 5. Diastolic congestive heart failure. The patient was admitted to the hospital with the above-mentioned diagnoses. The patient was started on IV antibiotics, Zithromax and Rocephin, and I will continue with the current medications. The patient has responded very well to the antibiotics. I will resume the patient's diuretics. I will cut down on the amount of fluid she is receiving. The patient was consulted by Cardiology. I will be very reluctant to use Lovenox or heparin for DVT prophylaxis because of the thrombocytopenia. We will continue to monitor the patient's labs very closely. ��������������������������������������������� <ELECTRONICALLY SIGNED> ���������������������������������������� By: Brittney Beard MD ��������������������������������������������� 12/04/18 0845 0915 1018 Brittney Beard MD /nt
--- NOTE | 2018-12-04 17:48 | NUR ---
PT A&OX4, AMBULATED WITH PT TODAY. IV INTACT IN L FA INFUSING NS @50/HR. S/O AT BEDSIDE. CALL LIGHT WITH IN REACH, BED ALARM ON. WILL CONT POC.
[2018-12-05 03:58] VITALS: BP 118/54
--- NOTE | 2018-12-05 05:13 | NUR ---
ASSESSMENT DOCUMENTED.PT BEEN RESTING IN NO ACUTE DISTRESS.A/OX4.VSS.CONT ON ANTIBIOTIC THERAPY FOR PNA,TOLERATING.CHRONIC PAIN CONTROLLED WITH SCHEDULED PAIN MEDS.PT TO HAVE STRESS TEST TODAY.PT KEPT NPO SINCE MIDNOC.WILL CONT TO MONITOR PER POC.
[2018-12-05 07:40] VITALS: BP 104/56
[2018-12-05 11:50] VITALS: BP 114/60
[2018-12-05 15:30] VITALS: BP 103/72
[2018-12-05 15:40] VITALS: BP 131/56
--- NOTE | 2018-12-05 18:17 | NUR ---
PT A&OX4, IV INTACT IN L FA INFUSING FLUIDS W/O COMPS. AMBULATES WITH ASSIST X1. PT RETURNED FROMSTRESS TEST. O2 @ 1.5L PER NC. WILL CONT POC.
[2018-12-05 20:11] VITALS: BP 120/61
--- NOTE | 2018-12-06 04:31 | NUR ---
RECEIVED PT'S CARE AT 1900; PT. ON BED; AOX4; DURING ASSESSMENT PT. C/O LOWER BACK PAIN; 12/18; SCHEDULED PAIN MEDICATION GIVEN; PAIN RE-ASSESSMENT; PT. SLEEPING; EDUCATED ABOUT FALL PREVENTION; ST. UNDERSTANDING; CALLED APROPIATELY THROUGH THE NIGHT; ABLE TO REST DURING THE NIGHT; EDUCATED ABOUT THE IMPORTANCE OF TURNING FROM SIDE TO SIDE; ST. UNDERSTANDING; TURNED AT MIDNIGHT TO THE LEFT SIDE; ASSESSMENT CHARGED; FOLLOWING POC; WILL KEEP MONITORING; WILL PASS ON REPORT.
[2018-12-06 04:59] LABS: HEMATOCRIT 26.8 % (37.0-47.0); HEMOGLOBIN 9.1 gm/dL (12.0-15.0); MCH 30.7 pg (26.0-34.0); MCV 90.2 fL (80.0-100.0); PLATELET COUNT 113 thou/uL (150-400); RBC 2.98 mil/uL (4.20-5.00); RDW 14.5 % (10.5-14.5); WBC 5.3 thou/uL (4.0-11.0)
[2018-12-06 05:08] VITALS: BP 116/55
[2018-12-06 05:10] LABS: CALCIUM 8.4 mg/dL (8.5-10.1); CREATININE 0.6 mg/dL (0.6-1.0); POTASSIUM 3.5 mmol/L (3.5-5.1)
[2018-12-06 06:27] LABS: ABSOLUTE NEUTROPHILS 3.1 thou/uL (1.4-8.2)
[2018-12-06 06:29] LABS: LARGE PLATELETS FEW; PLATELET ESTIMATE DECREASED
[2018-12-06 07:53] VITALS: BP 108/57
[2018-12-06] MEDS ORDERED: CEFUROXIME500 MG PO (08:18)
--- NOTE | 2018-12-06 10:15 | NUR ---
met with patient who resides at home with s/o. she reports he is in good health. she uses a cane for ambulation and lives in split level home. she reports no difficulty with steps. she does not use oxygen at home. she reports independent with adls. [facility] evaled and accepting of patient. She reports she has been to [facility] in past and likes [facility]. She has decided today to transition to [facility]. Notfied liason and orders completed, patient aware she will transfer today.
[2018-12-06 10:57] VITALS: BP 94/50
[2018-12-06] MEDS ORDERED: LASIX 40 MG TAB40 M2 PO (16:33)
[2018-12-06] MEDS ORDERED: KLOR-CON 1010 MEQ PO (16:34)
== END 2018-12-06 16:00 | DRG 871 ==
LOC: ER 12:15 → EROBS 13:44 → 2N 14:55 → ENTRNSPT 12-06 15:31 → EDTRNSPTSTS 12-06 15:32 → 2N 12-06 16:00
PROVIDERS: Emergency Medicine; ADMIT Internal Medicine
DX: A41.9 Sepsis, unspecified organism (principal); J18.1 Lobar pneumonia, unspecified organism; I21.4 Non-ST elevation (NSTEMI) myocardial infarction; N39.0 Urinary tract infection, site not specified; I50.30 Unspecified diastolic (congestive) heart failure; N17.9 Acute kidney failure, unspecified; E87.0 Hyperosmolality and hypernatremia; E86.0 Dehydration; I48.0 Paroxysmal atrial fibrillation; J45.909 Unspecified asthma, uncomplicated; F31.9 Bipolar disorder, unspecified; I11.0 Hypertensive heart disease with heart failure; G89.4 Chronic pain syndrome; D64.9 Anemia, unspecified; Z88.8 Allergy status to other drugs, medicaments and biological substances; Z88.6 Allergy status to analgesic agent; Z88.1 Allergy status to other antibiotic agents; Z91.040 Latex allergy status
CPT/HCPCS: 10081

== ENCOUNTER 2018-12-06 13:27 | Inpatient (IN) | payer OTHER ==
[~2018-12-06] VITALS: Ht 160 cm; Wt 54.4 kg
[~2018-12-06 13:27] MED LIST changes: +CEFUROXIME500 MG PO; +KEFLEX250 MG PO
[2018-12-06 15:50] VITALS: BP 112/47
[2018-12-06] MEDS ORDERED: LASIX 40 MG TAB40 M2 PO (16:33)
[2018-12-06] MEDS ORDERED: KLOR-CON 1010 MEQ PO (16:34)
--- NOTE | 2018-12-06 19:33 | NUR ---
ASSUMED CARE AT APPROX 1600. PATIENT A/O X4. VSS. SATS MAINTAINED ON 3L O2 PER NC. C/O BACK PAIN, REPORTED PAIN IS TOLERABLE. MAGALI HOSE TO BLE IN PLACE, BLE EDEMA NOTED. PATIENT REPORTED DISCOMFORT IN HEELS- HEELS FLOATED, SLIGHTLY SOFT, CRACKED SKIN NOTED ON RIGHT HEEL. ADMISSION ASSESSMENT COMPLETE. CONSENTS SIGNED. CONSULTS CALLED. MED ORDERS FAXED TO PHARMACY. PATIENT HAD DINNER. PATIENT'S SIGNIFICANT OTHER AT BEDSIDE, BOTH ORIENTED TO UNIT. FALL PRECAUTIONS IN PLACE. RESTING IN BED AT CHANGE OF SHIFT.
[2018-12-06 20:03] VITALS: BP 100/45
--- NOTE | 2018-12-07 03:24 | NUR ---
PT ALERT AND ORIENTED X 4. AMB TO BR WITH WALKER AND ASSIST X 1 WITHOUT DIFFICULTY. 02 ON AT 3L PER NC. PT C/O PAIN IN HEELS AND COCCYX. SCHEDULED OXYCODONE GIVEN AT HS AND PT SLEEPING UPON REASSESSMENT. BED ALARM ON FOR SAFETY. PT APPEARS TO BE SLEEPING ON HOURLY ROUNDS.
[2018-12-07 05:47] LABS: HEMATOCRIT 28.6 % (37.0-47.0); HEMOGLOBIN 9.5 gm/dL (12.0-15.0); MCH 30.5 pg (26.0-34.0); MCHC 33.4 g/dL (28.0-37.0); MCV 91.1 fL (80.0-100.0); RBC 3.13 mil/uL (4.20-5.00); RDW 14.5 % (10.5-14.5); WBC 5.1 thou/uL (4.0-11.0)
[2018-12-07 06:05] LABS: CALCIUM 8.5 mg/dL (8.5-10.1); CREATININE 0.6 mg/dL (0.6-1.0); POTASSIUM 3.9 mmol/L (3.5-5.1)
[2018-12-07 11:10] VITALS: BP 117/50
--- NOTE | 2018-12-07 19:30 | NUR ---
ASSUMED CARE AT APPROX 0700. PATIENT A/O X4. VSS. SATS MAINTAINED ON 3L O2 PER NC AND UP TO 4-5L NEED DURING THERAPY. REPORT SLEPT GOOD AT NIGHT. C/O BACK PAIN AND HEELS AT 5/10. REPORTED PAIN IS TOLERABLE. TUBI IT SOFTWARE ENGINEER TO BLE IN PLACE, BLE EDEMA NOTED. PATIENT REPORTED DISCOMFORT IN HEELS- HEELS FLOATED, SLIGHTLY SOFT, CRACKED SKIN NOTED ON RIGHT HEEL. PT HAS BEEN UP AND PARTICIPATED WITH OT/PT TODAY. UP TO BATHROOM WITH WALKER. DR. MORENO CAME TO ROUND PT AND RESUMED PT TO LAS. OFFERED SUPPORTIVE CARE. ENCOURAGED PT TO VOICE HER NEED. TOOK MEDS WITHOUT DIFFICULY. HER GOALS TO CONTINUE WITH THERAPY AND GET STRONGER. CONTINUE TO BE ON CEFTIN FOR PNEUMONIA. LUNG SOUND CLEAR AND DIMINISHED ON THE BASES, CHEST XRAY STILL SHOW LL ATELECTASIS AND PLEURAL EFFUSION. DISCUSSED ABOUT IS AND DEEP BREATH. CONTINUE TO BE ON BREATHING TX. FALL PRECAUTIONS IN PLACE. RESTING IN BED AT CHANGE OF SHIFT. GAVE BISACODYL ORDERED. NO BM FOR A WEEK, GIVE WARM APPLE JUICE. GIVE REPORT NIGHT NURSE CONTINUE TO MONITOR BM.
[2018-12-07 19:54] VITALS: BP 108/40
[2018-12-07 21:20] VITALS: BP 129/61
--- NOTE | 2018-12-07 23:27 | NUR ---
PT ASSESSMENT COMPLETED AND VSS. MEDS GIVEN ORDERED AND WELL TOLERATED. SUPPORTIVE SIGNIFICANT OTHER AT BEDSIDE. FALL PRECAUTIONS IN PLACE. UP TO THE BATHROOM WITH ASST/GAIT/WALKER. VOIDING LARGE AMOUNT OF YELLOW URINE. SCHEDULED PAIN AND SLEEP MEDICATION WORKING WELL. SAT WNL ON UP TO 4L NC. IS ENC. SLEEPING WELL. WILL CONTINUE TO MONITOR FREQUENTLY.
[2018-12-08 05:48] LABS: HEMATOCRIT 28.3 % (37.0-47.0); HEMOGLOBIN 9.5 gm/dL (12.0-15.0); MCH 30.3 pg (26.0-34.0); MCHC 33.4 g/dL (28.0-37.0); MCV 90.8 fL (80.0-100.0); PLATELET COUNT 185 thou/uL (150-400); RBC 3.12 mil/uL (4.20-5.00); RDW 14.4 % (10.5-14.5); WBC 5.5 thou/uL (4.0-11.0)
[2018-12-08 06:00] LABS: CALCIUM 8.7 mg/dL (8.5-10.1); CREATININE 0.6 mg/dL (0.6-1.0); POTASSIUM 3.8 mmol/L (3.5-5.1)
[2018-12-08 06:37] LABS: ABSOLUTE NEUTROPHILS 3.5 thou/uL (1.4-8.2)
[2018-12-08 06:38] LABS: LARGE PLATELETS SEVERAL; PLATELET ESTIMATE NORMAL
[2018-12-08 06:39] VITALS: BP 122/53
--- NOTE | 2018-12-08 08:05 | NUR ---
chart review, pt up in bed looking at book. noted pt on o2 per nc. intro to cm, transition of care, home health and team meets. pt is a & o x 3, pleasant and able to make her needs know. preferrs going by jack, she reported " live in house with sig other of 40 years. 12 steps with hand rails on both side to enter home from basement. then 1 main level. there is 1 step down into living room with post to hold onto. do not have trouble getting around house. cook. manage own medication. have cane. no driving for year or maybe longer. my dennis and son edilson drive. dr resendiz suggested i come to rehab here. not on any home oxygen"/jack. will cont following as needed for dc need. "[facility] past and had [facility] after that"/pt.
[2018-12-08 09:04] VITALS: BP 101/40
--- NOTE | 2018-12-08 10:38 | NUR ---
ASSUMED CARE AT 0700. PATIENT IS ALERT AND ORIENTED X4. PATIENT BERNAL'S, SLAB STRIPPER ARE EQUAL. LUNGS ARE CLEAR. ABD IS SOFT WITH BSX4. PATIENT GIVEN LAXATIVES FOR NO BM. UP TO THE BATHROOM TO VOID ELIZABETH COLORED URINE. UP IN BED FOR BREAKFAST. FALL AND SAFETY PROTOCOLS IN PLACE. MEDICATED WITH SCED PAIN MED R/T HER CHRONIC BACK PAIN. PATIENT CONTINUES TO PROGRESS TOWARDS D/C GOALS. WILL CONTINUE TO MONITER.
--- NOTE | 2018-12-08 11:55 | NUR ---
Nutrition: assess d/t wounds. Pt admitted for generalized debiliation and left lower lobe PNA. Noted +1 edema, started on Lasix. Pt was sleeping soundly during visit. Nursing reports great PO intake, 75-100% of all meals. Wound care team consulted regarding wounds on coccyx and heels. Per nursing, pt may be willing to drink flavored Eh, will trial and assess intake. With nutrition intervention in place, consider low risk at this time.
--- NOTE | 2018-12-08 15:40 | NUR ---
WOUND CONSULT; ROUNDING TODAY WITH DR YARI RODRIGUEZ AND CARLINE BRITTON SURFACE HYDROLOGIST. REDDEND AREAS TO THE BUTTOCKS NOTED. BILATERALL LE; CRUSTY, DRY SKIN NOTED. NO OPEN AREAS. RECOMMENDATIONS; BARRIER CREAM TO BUTTOCKS, AND AMMONIA LACTATE LOTION TO BLE DAILY, WRAP WITH KERLIX,SECURE WITH VELIA. DISCUSSED WITH ELIF
[2018-12-08 19:44] VITALS: BP 102/55
--- NOTE | 2018-12-09 02:32 | NUR ---
PT ALERT AND ORIENTED X 4. AMB TO BR WITH WALKER AND ASSIST X 1. 02 ON AT 4L PER NC. BOOTS ON. PT C/O PAIN IN HER BACK. SCHEDULED OXYCONTIN GIVEN AT HS. BED ALARM ON FOR SAFETY. PT APPEARS TO BE SLEEPING ON HOURLY ROUNDS.
[2018-12-09 06:47] LABS: HEMATOCRIT 29.5 % (37.0-47.0); HEMOGLOBIN 10.1 gm/dL (12.0-15.0); MCH 30.9 pg (26.0-34.0); MCHC 34.4 g/dL (28.0-37.0); MCV 89.7 fL (80.0-100.0); RBC 3.29 mil/uL (4.20-5.00); RDW 14.1 % (10.5-14.5); WBC 6.9 thou/uL (4.0-11.0)
[2018-12-09 06:58] LABS: CALCIUM 8.9 mg/dL (8.5-10.1); CREATININE 0.7 mg/dL (0.6-1.0); POTASSIUM 3.9 mmol/L (3.5-5.1)
[2018-12-09 07:30] VITALS: BP 118/47
[2018-12-09 21:05] VITALS: BP 111/50
--- NOTE | 2018-12-09 21:12 | NUR ---
ASSUMED CARE AT APPROX 0715. PATIENT A/O X4. UP X1 ASSIST GB AND WALKER, AMBULATING IN ROOM AND TO DINING AREA. PARTICIPATED IN THERAPY. WOUND CARE COMPLETED PER ORDERS. MEDS ADMINISTERED. PATIENT C/O CHRONIC BACK PAIN, PAIN MEDS GIVEN PER ORDERS. O2 SATS MAINTAINED ON 4L OF O2 PER NC, HUMIDIFIED. TUBI MEDICAL FIELD REPRESENTATIVE IN PLACE, REMOVED FOR SKIN CARE, LEGS ELEVATED WHILE AT REST. PATIENT RESTING IN RECLINER AT CHANGE OF SHIFT FALL PRECAUTIONS IN PLACE.
--- NOTE | 2018-12-10 01:24 | NUR ---
PT ASSESSMENT COMPLETED AND VSS. MEDS GIVEN ORDERED AND WELL TOLERATED. FALL PRECAUTIONS IN PLACE. UP TO THE BATHROOM WITH ASST/GAIT/WALKER. VOIDING LARGE AMOUNT OF YELLOW URINE. ASST WITH REPOSITION FOR COMFORT. PAIN AND SLEEP MEDICATION WORKING WELL. WILL CONTINUE TO MONITOR FREQUENTLY.
[2018-12-10 06:28] VITALS: BP 122/56
--- NOTE | 2018-12-10 11:00 | H ---
[facility] [place] [address] HISTORY AND PHYSICAL Name: AARON ANGUIANO Room #: 510-P ADM IN M.R.#: [id number] Admission: 12/06/18 ������������������ Attend Phys: Ney Dobson MD Discharge: ������������������ Date of : 34 Report #: [id number] THIS REPORT FOR: //name// CC: Brittney Dobson DATE OF SERVICE: 12/06/2018 HISTORY OF PRESENT ILLNESS: The patient is an 82-year-old female who was admitted to the hospital with left lower lobe pneumonia that was complicated with the elevated troponin. The patient was treated with antibiotics and eventually she had a stress test that was unremarkable. The patient had an echocardiogram that showed diastolic congestive heart failure, but besides that there was no major abnormality. The patient continued to be very debilitated. For this reason, we admitted the patient to inpatient rehabilitation. PAST MEDICAL HISTORY: Significant for asthma, hypertension, bipolar disorder, interstitial cystitis, chronic edema of the lower extremities, multilobar pneumonia with respiratory failure, intermittent atrial fibrillation, C. difficile colitis, chronic pain syndrome and laminectomy. The patient had a previous history of knee surgery, rotator cuff surgery and multiple abdominal surgeries. The patient had bilateral heel ulcers that are healing. MEDICATIONS: Reviewed. ALLERGIES: ASPIRIN, CODEINE AND DULOXETINE. SOCIAL HISTORY: The patient denies any recent history of smoking, alcohol use or drug use. FAMILY HISTORY: Noncontributory. REVIEW OF SYSTEMS: The patient denies any headache, blurred vision, runny nose or sore throat, but the patient is having some increasing shortness of breath. The patient denies any coughing or fever. She denies any chest pain or palpitation. She denies any nausea or vomiting. She is starting to have some swelling of the lower extremities. ASSESSMENT AND PLAN: 1. Left lower lobe pneumonia. 2. Elevated troponin that came back with negative stress test. 3. Diastolic congestive heart failure. 4. Intermittent atrial fibrillation. 5. Chronic pain syndrome. 6. Interstitial cystitis. [facility] [address] [place] [address] HISTORY AND PHYSICAL Name: AARON ANGUIANO BERNAL Room #: 510-P [facility] IN ..#: [id number] Admission: 12/06/18 ������������������ Attend Phys: Ney Dobson MD Discharge: ������������������ Date of : 34 Report #: [id number] The patient was admitted to the hospital with the above-mentioned diagnoses. The patient will continue the rest of her medications, but I will plan for the patient to start Lasix. I will repeat the patient's chest x-ray. I will check the patient's BNP. The patient is to start physical therapy and occupational therapy. We will continue to monitor the patient during her stay in the hospital. ��������������������������������������������� <ELECTRONICALLY SIGNED> ���������������������������������������� By: Brittney Beard MD ��������������������������������������������� 12/10/18 1100 0934 0945 Brittney Beard MD /nt
[2018-12-10 11:13] VITALS: BP 114/61
--- NOTE | 2018-12-10 12:11 | NUR ---
ASSUMED CARE AT 0700. PATIENT IS ALERT AND ORIENTED X4. PATIENT BERNAL'S, MITTEN STITCHER ARE EQUAL. LUNGS ARE DEMINISHED. 02 DECREASED TO 3L PER N/C PER R.T. R/T 02 SAT 98%. UP WITH ASSIST OF 1 STAFF AND GAIT BELT TO THE BATHROOM TO VOID ELIZABETH COLORED URINE. FALL AND SAFETY PROTOCOLS IN PLACE. C/O CHRONIC BACK PAIN. PATIENT MEDICATED WITH SCED PAIN MED. CONTINUES TO PROGRESS TOWARDS D/C GOALS. UP IN CHAIR FOR MEALS. HERE TO VISIT. WILL CONTINUE TO MONITER.
[2018-12-10 19:32] VITALS: BP 109/43
--- NOTE | 2018-12-11 00:34 | NUR ---
PT ASSESSMENT COMPLETED AND VSS. MEDS GIVEN ORDERED AND WELL TOLERATED. FALL PRECAUTIONS IN PLACE. SUPPORTIVE SIGNIFICANT OTHER IN ROOM. PAIN AND SLEEP MEDICATION WORKING WELL. UP TO THE BATHROOM WITH ASST/GAIT/WALKER. STEADY. VOIDING LARGE AMOUNT OF YELLOW URINE. PT UNABLE TO HAVE A BM. SUPPOSITORY GIVEN. NO RESULTS SO FAR. ASST WITH REPOSITION FOR COMFORT USING PILLOWS. WILL CONTINUE TO MONITOR FREQUENTLY.
[2018-12-11 05:21] LABS: BASOPHILS 1.2 % (0.0-2.0); EOSINOPHILS 2.1 % (0.0-3.0); HEMATOCRIT 28.6 % (37.0-47.0); HEMOGLOBIN 9.6 gm/dL (12.0-15.0); LYMPHOCYTES 35.3 % (24.0-44.0); MCH 30.5 pg (26.0-34.0); MCHC 33.6 g/dL (28.0-37.0); MCV 90.6 fL (80.0-100.0); PLATELET COUNT 262 thou/uL (150-400); POLYS 49.4 % (36.0-66.0); RBC 3.16 mil/uL (4.20-5.00); RDW 13.7 % (10.5-14.5); WBC 6.2 thou/uL (4.0-11.0)
[2018-12-11 05:30] LABS: CALCIUM 9.1 mg/dL (8.5-10.1); CREATININE 0.7 mg/dL (0.6-1.0); POTASSIUM 4.3 mmol/L (3.5-5.1)
[2018-12-11 06:08] VITALS: BP 115/58
--- NOTE | 2018-12-11 08:01 | HC ---
[facility] [place] [address] CONSULTATION Name: AARON ANGUIANO Room #: 510-P ADM IN M.R.#: [id number] Admission: 12/06/18 ������������������ Attend Phys: Ney Dobson MD Discharge: ������������������ Date of : 34 Report #: [id number] THIS REPORT FOR: //name// CC: Brittney Dobson DATE OF SERVICE: 12/09/2018 CHIEF COMPLAINT: Right heel ulceration and sacral ulceration. HISTORY OF PRESENT ILLNESS: This is an 82-year-old female patient who was admitted to the hospital with left lobe pneumonia. She was noted to have congestive heart failure and was treated with antibiotics. Due to her debility, she was admitted for inpatient rehabilitation. PAST MEDICAL HISTORY: Positive for hypertension, bipolar disorder, asthma, interstitial cystitis, bilateral lower extremity edema, multilobar pneumonia, history of intermittent atrial fibrillation and C. diff enterocolitis. MEDICATIONS: Reviewed. ALLERGIES: ASPIRIN, CODEINE AND DULOXETINE. SOCIAL HISTORY: Negative for alcohol or tobacco use. FAMILY HISTORY: Noncontributory. REVIEW OF SYSTEMS: CONSTITUTIONAL: The patient denies fever, chills or weight loss. NEUROLOGICAL: The patient denies focal weakness, numbness or tingling. EYES: The patient denies visual changes, redness or drainage. ENT: The patient denies earache, nasal drainage or sore throat. CARDIOVASCULAR: The patient denies chest pain, palpitations or diaphoresis. PULMONARY: The patient denies cough or shortness of breath. GASTROINTESTINAL: The patient denies nausea, vomiting, diarrhea or abdominal pain. ORTHOPEDIC: The patient is aware of small ulceration on her right heel. Denies sacral gluteal discomfort. PHYSICAL EXAMINATION: VITAL SIGNS: At this time include temperature 36.3, pulse 79, respiratory rate 17, blood pressure 101/40. GENERAL: This is a chronically ill-appearing female patient who appears to be in minimal distress. HEENT: Head normocephalic. Nose and throat clear. NECK: Supple. [address] [address] CONSULTATION Name: AARON ANGUIANO Room #: 510-[facility] IN M.R.#: [id number] Admission: 12/06/18 ������������������ Attend Phys: Ney Dobson MD Discharge: ������������������ Date of : 34 Report #: [id number] LUNGS: Clear. ABDOMEN: Soft. Bowel sounds present. EXTREMITIES: Sacral region demonstrates mild sacral gluteal erythema. It is blanchable. This is not pressure related, but appears to be moisture-associated dermatitis. Lower extremities demonstrate 2+ edema. There is dry crusting and callus to both heels. There is evidence of a prior ulcer on her posterior right heel that appears to be epithelialized at this time. CLINICAL IMPRESSION: 1. Moisture-associated dermatitis to the sacral region. 2. Stage 3 pressure ulcer of the right heel that appears to be in stages of healing with moderate callus and dry skin. 3. History of congestive heart failure. 4. Recent pneumonia. RECOMMENDATIONS: At this point in time, we will recommend a moisture barrier cream to the sacral gluteal region to be applied b.i.d. and p.r.n. We will recommend AmLactin lotion to the lower extremities and feet to deal with some of the dry skin. We will continue to follow her. Would recommend PRAFO boots while she is in bed. Otherwise, she from a wound care perspective can fully participate with rehab activities. I appreciate being asked to see her in consultation. ��������������������������������������������� <ELECTRONICALLY SIGNED> ���������������������������������������� By: Jose Deluca MD ��������������������������������������������� 12/11/18 0801 1117 [id number] Jose Deluca MD /nt
--- NOTE | 2018-12-11 08:43 | NUR ---
ASSUMED CARE AT 0700. REPORTS SLEEP GOOD. PATIENT IS ALERT AND ORIENTED X4. PATIENT BERNAL'S, SCIENTIFIC HELPER ARE EQUAL. LUNGS ARE DEMINISHED. SAT 86 ON 2L OF OXYGEN. 02 INCREASED TO 4L TO GET SAT 92 UP WITH ASSIST OF 1 STAFF AND GAIT BELT TO THE BATHROOM TO VOID ELIZABETH COLORED URINE. FALL AND SAFETY PROTOCOLS IN PLACE. C/O CHRONIC BACK PAIN 5/10 PAIN MED AND MORNING MED GIVEN. CONTINUES TO PROGRESS TOWARDS D/C GOALS. WILL CONTINUE TO MONITOR. SITTING AT THE EDGE OF HER BED EATING BREAKFAST. OT GIVE PT SHOWER SOON.
[2018-12-11 08:45] VITALS: BP 108/44
[2018-12-11 19:20] VITALS: BP 108/57
--- NOTE | 2018-12-12 01:06 | NUR ---
PT ALERT AND ORIENTED X 4. AMB TO BR WITH WALKER AND ASSIST X 1 WITHOUT DIFFICULTY. 02 ON AT 3L PER NC. 02 SAT 96%. PT C/O PAIN IN HER BACK. SCHEDULED OXYCODONE GIVEN AT HS. COCCYX RED - BARRIER CREAM APPLIED. PT REPOSITIONED. DULCOLAX SUPP GIVEN AT HS WITH NO RESULTS YET. BED ALARM ON FOR SAFETY. PT APPEARS TO BE SLEEPING ON HOURLY ROUNDS.
[2018-12-12 08:00] VITALS: BP 106/50
--- NOTE | 2018-12-12 12:39 | NUR ---
WOUND CARE FOLLOW UP; ROUNDING TODAY WITH DR RODRIGUEZ AND CARLINE MARKETING AUTOMATION MANAGER. BLE IMPROVING CLINICALLY. EDEMA MANAGED WITH TUBIGRIP. RECOMMENDATION CUNTINUE AMMONIA LACTAID LOTION. DISCUSSED WITH RN
--- NOTE | 2018-12-12 12:52 | NUR ---
team meeting, [facility]th home with [facility] ( pt, ot, nursing). possible needed walker, recommendation grab bars in bathroom. will try and ronel of o2 prior to dc-bedside nurse. dr resendiz and AUTO BODY WORKER notified of dc date .
--- NOTE | 2018-12-12 13:35 | NUR ---
ASSUMED CARE AT 0700. PATIENT IS ALERT AND ORIENTED X4. VSS. SAT 96% ON 3L. CONTINUE TO BE ON ABT PO FOR PNEUMONIA. ENCOURAGED PT TO USE IS FREQUENTLY. B/P 106/50 HR 70. ENCOURAGED PT TO DRINK MORE FLUID. UP WITH ASSIST OF 1 STAFF AND GAIT BELT TO THE BATHROOM TO VOID ELIZABETH COLORED URINE. FALL AND SAFETY PROTOCOLS IN PLACE. C/O CHRONIC BACK PAIN 5/10 PAIN MED AND MORNING MED GIVEN. CONTINUES TO PROGRESS TOWARDS D/C GOALS. TEAM MEETING TODAY WILL BE D/C TO HOME WITH HH ON TUESDAY. CONTINUE TO MONITOR NEED FOR OXYGEN BEFORE DISCHARGE. WILL CONTINUE TO MONITOR.
[2018-12-12 19:30] VITALS: BP 95/49
--- NOTE | 2018-12-13 01:32 | NUR ---
PT ALERT AND ORIENTED X 4. AMB TO BR WITH WALKER AND ASSIST X 1 WITHOUT DIFFICULTY. 02 ON AT 3L PER NC. 02 SAT 98% ON 3L. C/O PAIN IN HER BACK. SCHEDULED OXYCODONE GIVEN AT HS AND PT SLEEPING UPON REASSESSMENT. BED ALARM ON FOR SAFETY. PT APPEARS TO BE SLEEPING ON HOURLY ROUNDS.
[2018-12-13 06:25] LABS: HEMATOCRIT 27.9 % (37.0-47.0); HEMOGLOBIN 9.3 gm/dL (12.0-15.0); MCH 30.2 pg (26.0-34.0); MCHC 33.4 g/dL (28.0-37.0); MCV 90.6 fL (80.0-100.0); PLATELET COUNT 261 thou/uL (150-400); RBC 3.08 mil/uL (4.20-5.00); RDW 13.8 % (10.5-14.5); WBC 5.4 thou/uL (4.0-11.0)
[2018-12-13 06:46] LABS: CALCIUM 8.9 mg/dL (8.5-10.1); CREATININE 0.9 mg/dL (0.6-1.0); POTASSIUM 3.8 mmol/L (3.5-5.1)
[2018-12-13 07:01] LABS: ABSOLUTE NEUTROPHILS 2.9 thou/uL (1.4-8.2)
[2018-12-13 07:02] LABS: PLATELET ESTIMATE NORMAL
[2018-12-13 08:35] VITALS: BP 92/47
--- NOTE | 2018-12-13 12:32 | NUR ---
ASSUMED CARES AT 0700. PT AWAKE, ALERT AND ORIENTED*4. C/O BACK AND SOFIA HEEL PAIN, PAIN MEDICATION ADMINISTERED ORDERED, HEELS ELEVATED. BP LOW THIS AM (SBP 92), UPTO 120 AFTER AN HOUR, ENCOURAGE FLUID INTAKE. SATS AT 88-92% ON 1L OXYGEN, O2 INCREASED TO 2L WITH ACTIVITY. LS CLEAR/DIMINISHED. BS ACTIVE*4, ABDOMEN SOFT AND ROUND, LAST BM 12/12. WOUND ON RIGHT MOSES INTACT AND DRY, DRESSING CHANGED. TUBAL TRACK SWEEPER ON BLE R/T BLE EDEMA. PT UP WITH MIN ASSIST, GAITBELT, WALKER AND OXYGEN. Q1H VISUAL CHECKS. CALL LIGHT WITHIN REACH. FALL PRECAUTIONS IN PLACE
[2018-12-13 14:00] VITALS: BP 107/44
--- NOTE | 2018-12-13 14:15 | NUR ---
Patient participated in community reintegration on 12/13/18 with Physical Therapy. Refer to documentation by PT.
[2018-12-13 19:00] VITALS: BP 120/57
--- NOTE | 2018-12-13 23:52 | NUR ---
PT ASSESSMENT COMPLETED AND VSS. MEDS GIVEN ORDERED AND WELL TOLERATED. FALL PRECAUTIONS IN PLACE. SUPPORTIVE SIGNIFICANT OTHER AT BEDSIDE. UP TO THE BATHROOM WITH ASST/GAIT/WALKER. STEADY. SAT WNL ON NC. SLEEPING WELL ON HER SIDE. WILL CONTINUE TO MONITOR FREQUENTLY.
[2018-12-14 05:15] VITALS: BP 117/60
[2018-12-14 09:05] VITALS: BP 108/57
--- NOTE | 2018-12-14 12:22 | H ---
[facility] [place] [address] HISTORY AND PHYSICAL Name: AARON ANGUIANO Room #: 510-P ADM IN M.R.#: [id number] Admission: 12/06/18 ������������������ Attend Phys: Ney Dobson MD Discharge: ������������������ Date of : 34 Report #: [id number] THIS REPORT FOR: //name// CC: Brittney Dobson DATE OF SERVICE: 12/06/2018 POSTADMISSION PHYSICIAN EVALUATION HISTORY OF PRESENT ILLNESS: The patient has been admitted for acute in-hospital inpatient rehabilitation. Please see my prior consult dictation as well as Dr. Beard's dictation. She does have medical complex with generalized debilitation with left lower lobe pneumonia, non-ST elevation LA, and intermittent atrial fibrillation. PAST MEDICAL HISTORY: Well documented. SOCIAL HISTORY: She lives in a house with her significant other of 40 years, 12 steps in. She used a cane just when out in the community. Otherwise, she did not utilize gait-aids. PHYSICAL EXAMINATION: GENERAL: She was seen earlier in no distress. When seen earlier, she was sleepy, but arousable. VITAL SIGNS: Temperature 36.6, pulse 78, respirations 18, blood pressure 100/45. She is on nasal prong O2. HEENT: Appeared to be benign. CHEST: Sounded clear to auscultation with some decreased breath sounds overall. CARDIAC: Sounded regular rate and rhythm. ABDOMEN: Bowel sounds positive, nontender. NEUROMUSCULOSKELETAL: No calf swelling. She has some generalized weakness of upper and lower extremities, 4-/5. She has been needing min assist with short distance ambulation. ASSESSMENT: 1. Medical complex with generalized debilitation. 2. Left lower lobe pneumonia. 3. Non-ST elevation myocardial infarction. 4. Intermittent atrial fibrillation. 5. Chronic pain syndrome. 6. Diastolic congestive heart failure. PLAN: The patient has been admitted for acute in-hospital inpatient rehabilitation. From a postadmission physician evaluation perspective, there are no relevant changes since the preadmission screening. Please see the above [address] [address] HISTORY AND PHYSICAL Name: AARON ANGUIANO BERNAL Room #: 510-P ADM IN ..#: [id number] Admission: 12/06/18 ������������������ Attend Phys: Ney Dobson MD Discharge: ������������������ Date of : 34 Report #: [id number] review of prior and current medical and functional conditions and comorbidities. Please see the patient's previous and current functional status. As far as risk of complication, she does have multiple medical comorbidities as noted above. The initial plan of care involves the interdisciplinary acute inpatient rehabilitation program with the goal of maximizing the patient's functional independence, so she can hopefully return back to her prior living situation. Measurable functional goals would be for her to become modified independent with transfers, mobility, ADLs, and to improve her overall endurance. Prognosis is reasonably good with the estimated length of stay probably at least 7-14 days depending progress. Potential barriers would include her multiple medical comorbidities and decreased functional status. The patient meets diagnostic criteria for an acute in-hospital inpatient rehabilitation stay. She meets the medical necessity criteria and we will have the design consultant physicians continue to follow. Dr. Beard is assisting with medical management and Cardiology has been involved. She does have the tolerance for therapies and has appropriate discharge goals back to the home setting. ��������������������������������������������� <ELECTRONICALLY SIGNED> ���������������������������������������� By: Ney Dobson MD ��������������������������������������������� 12/14/18 1222 1111 1122 Ney Dobson MD /nt
--- NOTE | 2018-12-14 12:22 | PLAN ---
[facility] [place] [address] REHAB UNIT PLAN OF CARE Name: AARON ANGUIANO Room #: 510-P ADM IN M.R.#: [id number] Admission: 12/06/18 ������������������ Attend Phys: Ney Dobson MD Discharge: ������������������ Date of : 34 Report #: [id number] THIS REPORT FOR: //name// CC: Brittney Dobson DATE OF SERVICE: 12/08/2018 PROGRESS NOTE/OVERALL PLAN OF CARE SUBJECTIVE: The patient is seen back today in followup. She is in no distress. Last recorded temperature 97.3, pulse 78, respirations 18, blood pressure 122/53. No calf swelling. She has her hose in place, bilateral lower extremities, knee high. She is on nasal prong O2, currently 4 liters. Transfers are min assist. Gait min assist 75 feet front-wheeled walker. In occupational therapy, lower body dressing is moderate assistance. ASSESSMENT: 1. Medical complex with generalized debilitation. 2. Left lower lobe pneumonia. 3. Non-ST elevation myocardial infarction. 4. Intermittent atrial fibrillation. 5. History of chronic pain syndrome. 6. Diastolic heart failure. 7. History of interstitial cystitis. PLAN: The overall plan of care is based on the preadmission screen, post-admission physician evaluation and information garnered from therapy assessments. 1. Estimated length of stay is probably at least 10 days to 2 weeks pending progress. 2. Medical prognosis is reasonably good. 3. Anticipated interventions includes the interdisciplinary acute inpatient rehabilitation program with goal of maximizing the patient's functional independence, so that she can hopefully return back to her prior living situation. 4. Anticipated functional outcomes would be for the patient to become modified independent with transfers, mobility, ADLs, so that her prior living situation. 5. Discharge destination would be back where she lives with her significant other of 40 years, 12 steps in. Did not utilize a gait aid, premorbidly except a cane out in the community. 6. Expected therapy by discipline includes PT and OT 1-1/2 hours per day each [address] [address] REHAB UNIT PLAN OF CARE Name: AARON ANGUIANO BERNAL Room #: 510-P [facility] IN .R.#: [id number] Admission: 12/06/18 ������������������ Attend Phys: Ney Dobson MD Discharge: ������������������ Date of : 34 Report #: [id number] five days a week throughout the duration of the acute inpatient rehabilitation stay. ��������������������������������������������� <ELECTRONICALLY SIGNED> ���������������������������������������� By: Ney Dobson MD ��������������������������������������������� 12/14/18 1222 0835 0053 Ney Dobson MD /nt
--- NOTE | 2018-12-14 14:48 | NUR ---
ASSUMED CARES AT 0700. PT AWAKE, ALERT AND ORIENTED*4. DENIES PAIN. VITALS REMAIN STABLE. LS CLEAR/ DIMINISHED, O2 SATS 92-95% ON RA, WILL CONTINUE TO MONITOR. WOUND ON RIGHT MOSES HEALED, DRESSING DC'D. AMMONIUM LACTATE APPLIED TO BLE SCHEDULED, TUBAL SUPERVISOR LUMP ROOM IN PLACE, CONTINUES TO HAVE EDEMA IN BLE. PT IS NOW MOD INDEPENDENT IN ROOM. AMBULATING WITH GAITBELT ONLY AND TOLERATING WELL. Q1H VISUAL CHECKS. CALL LIGHT WITHIN REACH. FALL PRECAUTIONS IN PLACE
--- NOTE | 2018-12-14 16:50 | NUR ---
cm notified by bedside nurse that per rt and dr o2 sat and exercise will be completed tomorrow the day of dc. fww rx [facility] to [facility].
[2018-12-14 19:15] VITALS: BP 107/45
--- NOTE | 2018-12-15 01:33 | NUR ---
PT ALERT AND ORIENTED X 4. AMB TO BR WITH WALKER AND ASSIST X 1 WITHOUT DIFFICULTY. C/O PAIN IN HER BACK. SCHEDULED OXYCODONE GIVEN AT HS. BED ALARM ON FOR SAFETY. PT APPEARS TO BE SLEEPING ON HOURLY ROUNDS.
[2018-12-15] MEDS ORDERED: COLACE 100 MG100 MG PO (07:44)
[2018-12-15] MEDS ORDERED: K-DUR 20 MEQ T20 MEQ PO (07:44)
[2018-12-15] MEDS ORDERED: TROSPIUM CHLORI20 MG PO (07:44)
[2018-12-15] MEDS ORDERED: AMMONIUM LACTA226 GM TOP (07:44)
[2018-12-15] MEDS ORDERED: MUCINEX600 MG PO (07:44)
[2018-12-15] MEDS ORDERED: MIRALAX17 GM PO (07:44)
[2018-12-15 08:00] VITALS: BP 123/67
--- NOTE | 2018-12-15 10:00 | NUR ---
cm notified by bedside nurse that pt will have o2 sat exercise today and that pt ride is not able to be here until 7pm today for dc. cm notified that pt is not requiring any oxygen for dc. fww delivered from [facility].
[2018-12-15 10:06] VITALS: BP 123/67
[2018-12-15 10:31] VITALS: BP 123/67
[2018-12-15 13:29] VITALS: BP 123/67
[2018-12-15 13:40] VITALS: BP 123/67
--- NOTE | 2018-12-15 15:16 | NUR ---
DISCHARGE HOME HEALTH ORDERS COMPLETED. [facility] NOTIFIED.
[2018-12-15 19:38] VITALS: BP 123/67
--- NOTE | 2018-12-15 19:39 | NUR ---
ASSUMED CARE OF PT AT 0715. PT IS A&OX4 AND VITAL SIGNS ARE STABLE. PT REPORTED PAIN THIS MORNING IN HER BACK AND WAS TREATED WITH SCHEDULED PAIN MEDICAITONS. PT TAKES MEDICIATONS WHOLE WITH THIN LIQUIDS. TRANSFERS AND AMBULATES WITH 1 PERSON STAND BY ASSISTANCE WITH GAIT BELT AND WALKER. WOUNDS PHOTOGRAPHED, DISCHARGE PAPERS SIGNED, DISCHARGE EDUCATION DONE BY NURSE, PRESCRIPTIONS GIVEN TO PT, BELONGINGS REMOVED BY FAMILY. PT DISCHARGED FROM UNIT AT 1930 WITH EGG PASTEURIZER IN W/C TO FAMILY VEHICLE AT EMERGENCY ENTERANCE.
--- NOTE | 2018-12-18 21:42 | HC ---
[facility] [place] [address] CONSULTATION Name: AARON ANGUIANO Room #: 510-P [facility] IN M.R.#: [id number] Admission: 12/06/18 ������������������ Attend Phys: Ney Dobson MD Discharge: 12/15/18 ������������������ Date of : 33 Report #: [id number] THIS REPORT FOR: //name// CC: Brittney Beard Ney Dobson DATE OF SERVICE: 12/09/2018 NEUROBEHAVIORAL STATUS EXAM: ATTENDING PHYSICIAN: Ney Dobson MD. NEEDLE MOLDER: Bayron Chavira, PhD. CLINICAL PRESENTATION: The patient is an 82-year-old female admitted to the rehab unit at [facility] for comprehensive inpatient rehabilitation program to improve functional mobility, activities of daily living and self-care and mental status secondary to deficits from medical complexity and general debility. Her assessment on admission to rehab also included left lower lobe pneumonia, non-ST elevation myocardial infarction, intermittent atrial fibrillation, chronic pain syndrome and diastolic congestive heart failure. A complete description of her medical condition and history can be found in her medical record. Neuropsychological consultation was requested to provide assistance in the assessment of cognitive and emotional status and to provide recommendations and services. Prior to this most recent admission, the patient was living independently in her own home with a significant other. She reports that she had discontinued driving because of adverse effects of narcotic medication. She has 2 children and is a high school graduate. 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 TECHNIQUES UTILIZED: Clinical interview, review of medical records, staff consultation and behavioral observation, mini mental status exam 2 standard version, clock drawing and verbal fluency assessment (letter and category). EXAMINATION FINDINGS: The patient was alert and cooperative with the assessment. She is aware of the reason for her hospitalization. Reported symptoms include weakness and short of breath and occasional difficulty with word finding. She does not report problems with memory, confusion, disorientation or difficulty with concentration. She is sleeping well and does not report anxiety or depression. Symptoms primarily include decreased appetite, tiredness and fatigue. [facility] [address] [place] [address] CONSULTATION Name: AARON ANGUIANO Room #: 510-P [facility] IN M.R.#: [id number] Admission: 12/06/18 ������������������ Attend Phys: Ney Dobson MD Discharge: 12/15/18 ������������������ Date of : 33 Report #: [id number] Her performance on the MMSE 2 brief version was within normal limits with a raw score of 14/16 and T score of 45. Performance on the MMSE 2 standard version is within normal limits with a raw score 25 and a T score of 44. The patient did have difficulty with copying a simple geometric design. She was 4/5 for serial 7's. Performance in letter fluency was within normal limits with a raw score of 21, T score of 49 and percentile rank of 46. Deficits were noted with category fluency where she obtained a raw score of 20, T score 39, percentile rank of 2. Overall, total fluency was a raw score of 41, T score 36 and percentile rank of 8. This type of presentation suggests impairment in visual spatial construction and higher level executive functioning. DIAGNOSTIC IMPRESSION: Mild neurocognitive disorder, unspecified, without behavior disorder. RECOMMENDATIONS: The patient may benefit from continued assistance with the management of instrumental activities of daily living. Assistance in planning and problem solving is indicated. Family education regarding mild deficits in her cognitive functioning and need for increased assistance upon her return home. A followup neuropsychological assessment may be helpful to clarify cognitive status. She is alert and oriented, however, variability in visual spatial construction and executive functioning may lead to increased safety concerns and require monitoring and assistance upon her discharge. Thank you very much for allowing me to provide consultation on this patient. ��������������������������������������������� <ELECTRONICALLY SIGNED> ���������������������������������������� By: Bayron Chavira, PhD ��������������������������������������������� 12/18/18 [id number] Bayron Chavira, PhD /nt
== END 2018-12-15 19:30 | disposition home health service (06) | DRG 193 ==
PROVIDERS: Internal Medicine; Nurse Practitioner Adult Health; ADMIT Physical Medicine & Rehabilitation
DX: J18.1 Lobar pneumonia, unspecified organism (principal); L89.613 Pressure ulcer of right heel, stage 3; I21.4 Non-ST elevation (NSTEMI) myocardial infarction; I50.30 Unspecified diastolic (congestive) heart failure; R53.81 Other malaise; I48.91 Unspecified atrial fibrillation; G89.4 Chronic pain syndrome; L30.8 Other specified dermatitis; N30.10 Interstitial cystitis (chronic) without hematuria; F31.9 Bipolar disorder, unspecified; J45.909 Unspecified asthma, uncomplicated; N30.90 Cystitis, unspecified without hematuria; K59.00 Constipation, unspecified; Z88.6 Allergy status to analgesic agent; Z88.8 Allergy status to other drugs, medicaments and biological substances; Z88.1 Allergy status to other antibiotic agents; Z91.040 Latex allergy status
CPT/HCPCS: 10112

== ENCOUNTER → 2019-11-15 | Outpatient (CLI) | payer OTHER ==
[~2019-11-15] MED LIST changes: +AMMONIUM LACTA226 GM TOP; +K-DUR 20 MEQ T20 MEQ PO; +MIRALAX17 GM PO; +MUCINEX600 MG PO; +TROSPIUM CHLORI20 MG PO
== END ==
LOC: SJCVC 14:22
DX: R94.31 Abnormal electrocardiogram [ECG] [EKG] (principal); I45.10 Unspecified right bundle-branch block; I48.0 Paroxysmal atrial fibrillation; E78.5 Hyperlipidemia, unspecified; I10 Essential (primary) hypertension; R06.00 Dyspnea, unspecified

== ENCOUNTER → 2019-11-22 | Outpatient (CLI) | payer OTHER | LOC: SJCVCIMAG 12:33 | DX: I07.1 Rheumatic tricuspid insufficiency (principal); I27.20 Pulmonary hypertension, unspecified; I48.91 Unspecified atrial fibrillation; M79.89 Other specified soft tissue disorders; M79.669 Pain in unspecified lower leg ==

== ENCOUNTER → 2020-07-17 | Outpatient (CLI) | payer OTHER | LOC: SJCVC 14:01 | PROVIDERS: ATTEND Internal Medicine Cardiovascular Disease | DX: R94.31 Abnormal electrocardiogram [ECG] [EKG] (principal); I48.0 Paroxysmal atrial fibrillation; I10 Essential (primary) hypertension; E78.00 Pure hypercholesterolemia, unspecified; R60.0 Localized edema; F32.9 Major depressive disorder, single episode, unspecified; Z72.89 Other problems related to lifestyle; Z79.899 Other long term (current) drug therapy; Z87.891 Personal history of nicotine dependence; Z88.6 Allergy status to analgesic agent; Z88.5 Allergy status to narcotic agent; Z88.8 Allergy status to other drugs, medicaments and biological substances ==

== ENCOUNTER → 2021-02-10 | Outpatient (CLI) | payer OTHER | LOC: SJCVC 14:51 | PROVIDERS: ATTEND Internal Medicine Cardiovascular Disease | DX: R94.31 Abnormal electrocardiogram [ECG] [EKG] (principal); I45.2 Bifascicular block; I48.0 Paroxysmal atrial fibrillation; I10 Essential (primary) hypertension; E78.00 Pure hypercholesterolemia, unspecified; R60.0 Localized edema; R00.0 Tachycardia, unspecified; F32.9 Major depressive disorder, single episode, unspecified; Z87.891 Personal history of nicotine dependence; Z79.899 Other long term (current) drug therapy; Z88.8 Allergy status to other drugs, medicaments and biological substances; Z88.5 Allergy status to narcotic agent; Z88.1 Allergy status to other antibiotic agents ==

== ENCOUNTER → 2021-06-29 | Outpatient (CLI) | payer OTHER | LOC: HYPER 10:38 | PROVIDERS: ATTEND Emergency Medicine Emergency Medical Services | DX: L89.621 Pressure ulcer of left heel, stage 1 (principal); L84 Corns and callosities; G90.09 Other idiopathic peripheral autonomic neuropathy; R21 Rash and other nonspecific skin eruption; J45.909 Unspecified asthma, uncomplicated; I10 Essential (primary) hypertension; F32.9 Major depressive disorder, single episode, unspecified; F41.9 Anxiety disorder, unspecified; Z87.891 Personal history of nicotine dependence; Z87.01 Personal history of pneumonia (recurrent); Z85.038 Personal history of other malignant neoplasm of large intestine; Z85.828 Personal history of other malignant neoplasm of skin; Z90.710 Acquired absence of both cervix and uterus; Z98.890 Other specified postprocedural states; Z79.899 Other long term (current) drug therapy ==